=== PATIENT | male | born 1985 | race African-American/Black ===

== ENCOUNTER 2016-09-26 15:50 | Emergency (ER) | payer SELFPAY ==
[2016-09-26 16:02] VITALS: BP 97/60; PULSE 102; TEMP 98; BMI 21.9
[2016-09-26] MEDS ORDERED: KETOROLAC TROMETHAMINE 30 MG/1 ML VIAL IM ONE (16:45)
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
[2016-09-26] MEDS ORDERED: KETOROLAC TROMETHAMINE 30 MG/1 ML VIAL ONE (16:50)
== END 2016-09-26 17:16 | disposition home or self-care (01) ==
LOC: JERFT 15:50
PROC: 3E0233Z Introduction of Anti-inflammatory into Muscle, Percutaneous Approach (ICD-10-PCS; principal; 2016-09-26)
DX: M54.5 Low back pain (principal); V43.52XA Car driver injured in collision with other type car in traffic accident, initial encounter; W22.11XA Striking against or struck by driver side automobile airbag, initial encounter; Y92.488 Other paved roadways as the place of occurrence of the external cause; Y93.89 Activity, other specified; Y99.9 Unspecified external cause status
CPT/HCPCS: 99281-25

== ENCOUNTER 2016-10-05 12:24 | Emergency (ER) | payer OTHER ==
[2016-10-05 12:28] VITALS: BP 110/73; PULSE 63; TEMP 98; BMI 21.9
[2016-10-05] MEDS ORDERED: ACETAMINOPHEN 500 MG TABLET (FP) PO ONE (13:49)
[2016-10-05] MEDS ORDERED: ACETAMINOPHEN 500 MG TABLET (FP) ONE (13:53)
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
--- NOTE | 2016-10-11 08:45 | PDOC ---
Patient Follow-up (Call Back) - Post ED Follow - Up Condition at time of discharge: Stable Disposition at time of original discharge: HOME Reason for Call Back: Radiology (10/05/16 left knee suspected patella agustina, pt. to follow up with orthopedist.)
== END 2016-10-05 14:26 | disposition home or self-care (01) ==
LOC: JERFT 12:24
DX: S80.02XA Contusion of left knee, initial encounter (principal); V03.90XA Pedestrian on foot injured in collision with car, pick-up truck or van, unspecified whether traffic or nontraffic accident, initial encounter; Y93.89 Activity, other specified; Y92.410 Unspecified street and highway as the place of occurrence of the external cause
CPT/HCPCS: 73562-TC-LT; 99281-25